=== PATIENT | male | born 1940 | race Caucasian/White ===

== ENCOUNTER → 2020-10-08 | Outpatient (CLI) | payer MEDICARE ==
[~2020-10-08] MED LIST: ALDACTONE 25MG25 MG PO; ATORVASTATIN CA40 MG PO; CARBIDOPA-LEVO1 EA14 PO; CLOPIDOGREL75 MG PO; DITROPAN 5 MG TA5 MG PO; ECOTRIN81 MG PO; ESCITALOPRAM OX20 MG PO; HYDROCODON-ACE1 EAC4 PO; IMDUR ER TAB 6060 MG PO; IMODIUM CAP 2 MG2 MG PO; LOPRESSOR 25 MG25 MG PO; NITROGLYCERIN0.4 MG SL; ONDANSETRON HCL8 MG PO; PROTONIX 40 MG40 M1 PO; SODIUM BICARBO650 M1 PO
[2020-10-08 11:19] LABS: HEMOGLOBIN 12.6 gm/dl (14.0-17.5); RED BLOOD COUNT 4.22 M/UL (4.20-5.50)
== END ==
LOC: LAB 10:47
PROVIDERS: Internal Medicine Nephrology
DX: Z01.812 Encounter for preprocedural laboratory examination (principal); N18.4 Chronic kidney disease, stage 4 (severe); Z20.822 Contact with and (suspected) exposure to COVID-19
CPT/HCPCS: 36415; 85025; 85610; 85730; U0003

== ENCOUNTER → 2020-10-10 | Outpatient (CLI) | payer MEDICARE | LOC: CT 07:08 | PROC: 0TB03ZX Excision of Right Kidney, Percutaneous Approach, Diagnostic (ICD-10-PCS; principal; 2020-10-10) | DX: N17.8 Other acute kidney failure (principal); I12.9 Hypertensive chronic kidney disease with stage 1 through stage 4 chronic kidney disease, or unspecified chronic kidney disease; N18.9 Chronic kidney disease, unspecified; C83.10 Mantle cell lymphoma, unspecified site; J43.9 Emphysema, unspecified; I25.2 Old myocardial infarction; K21.9 Gastro-esophageal reflux disease without esophagitis; F41.9 Anxiety disorder, unspecified; Z88.2 Allergy status to sulfonamides; Z87.891 Personal history of nicotine dependence | CPT/HCPCS: 77012; 88305; 88313; 88346; 88348; J7030 ==